=== PATIENT | female | born 1970 | race Caucasian/White ===

== ENCOUNTER 2018-02-26 06:32 | Day surgery (SDC) | payer OTHER ==
[2018-02-26] VITALS (19 sets, daily range): BP systolic 134–168; BP diastolic 74–101; PULSE 74–124; RESP 10–24; Ht 154.9 cm; Wt 87.0 kg
[~2018-02-26] VITALS: Ht 154.9 cm; Wt 87.0 kg
[2018-02-26] MEDS ORDERED: SOD CHLORIDE 0.9% 1,000 ML IV SCH (07:00)
[2018-02-26] MEDS ORDERED: CEFAZOLIN 1 GM/50 ML (PMX) 50 ML IVPB ONE (07:00)
[2018-02-26] MEDS ORDERED: CITA20TA11 PO (07:41)
[2018-02-26] MEDS ORDERED: LORA1TAB PO (07:42)
[2018-02-26] MEDS ORDERED: AMLO5TAB4 PO (07:42)
[2018-02-26] MEDS ORDERED: OMEP20CA16 PO (07:42)
--- NOTE | 2018-02-26 09:52 | HPN ---
Date/Time of Note Date/Time of Note DATE: 02/26/18 TIME: 09:52 Interval H&P Admission Note Pt. seen H&P reviewed: No system changes ROSALINA GONZALEZ MD Feb 26, 2018 09:52
--- NOTE | 2018-02-26 09:53 | PREAC ---
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 not on B-Ze Reported Medications Omeprazole* (Omeprazole*) 20 Mg Capsule.dr, 20 MG PO DAILY, #30 CAP 02/26/18 Lorazepam* (Lorazepam*) 1 Mg Tablet, 1 MG PO BID PRN for ANXIETY, #30 TAB 02/26/18 Amlodipine Besylate* (Norvasc*) 5 Mg Tablet, 5 MG PO DAILY, TAB 02/26/18 Citalopram Hydrobromide* (Celexa*) 20 Mg Tablet, 20 MG PO DAILY, #30 TAB 02/26/18 Current Medications Sodium Chloride 1,000 ml @ 75 mls/hr [id number] IV ; Start 02/26/18 at 07:00; Stop 02/26/18 at 20:19 Meds reviewed: Yes Allergies Coded Allergies: No Known Drug Allergies (Unverified Allergy, Unknown, 02/26/18) Allergies Reviewed: Yes Labs/Studies Labs Reviewed: Reviewed by anesthesiologist Result Diagram: 02/26/18 0730 02/26/18 0730 Laboratory Tests 02/26/18 07:30 test: Negative Pre-procedure Exam Last vitals Vital Signs Date Temp Pulse Resp B/P (MAP) Pulse Ox O2 O2 Flow FiO2 Time Delivery Rate 02/26/18 97.0 74 18 147/88 95 Room Air 08:06 (107) Airway: Adequate mouth opening, Adequate thyromental dist Mallampati: Mallampati II Teeth: Normal Lung: Normal Heart: Normal ASA Physical Status ASA physical status: 2 Emergency: None Planned Anesthetic General/MAC: LMA Planned Pain Management Parenteral pain med Pre-operative Attestations Prior to commencing anesthesia and surgery, the patient was re-evaluated, there was verification of: *The patient's identity *The results of appropriate recent lab work and preoperative vital signs *The above evaluation not changing prior to induction *Anesthetic plan, risk benefits, alternative and complications discussed with patient/family; questions answered; patient/family understands, accepts and wishes to proceed. HOMERO GIBBS MD Feb 26, 2018 09:53
[2018-02-26] MEDS ORDERED: PROPOFOL 20 ML ONE ×2 (10:13→10:40)
[2018-02-26] MEDS ORDERED: FENTAnyl 50 MCG/ML VIAL ONE (10:13)
[2018-02-26] MEDS ORDERED: LIDOCAINE 2% (SDV) 5 ML INJ ONE (10:13)
[2018-02-26] MEDS ORDERED: MIDAZOLAM 1 MG/ML 2 ML INJ ONE (10:13)
[2018-02-26] MEDS ORDERED: FAMOTIDINE 20 MG INJ ONE (10:24)
[2018-02-26] MEDS ORDERED: CEFAZOLIN 1 GM INJ ONE (10:24)
[2018-02-26] MEDS ORDERED: DEXAMETHASONE 4 MG/ML 5 ML INJ ONE (10:24)
[2018-02-26] MEDS ORDERED: ONDANSETRON 4 MG INJ ONE (10:24)
[2018-02-26] MEDS ORDERED: FENTAnyl 50 MCG/ML VIAL IV PRN ×3 (10:30)
[2018-02-26] MEDS ORDERED: PROCHLORPERAZINE 10 MG INJ IV PRN (10:30)
[2018-02-26] MEDS ORDERED: OXYCODONE/ACETAMINOPHEN (5/325) TAB PO PRN ×3 (10:30→11:30)
[2018-02-26] MEDS ORDERED: MEPERIDINE 25 MG INJ IV PRN (10:30)
[2018-02-26] MEDS ORDERED: HYDROmorphONE 1 MG/5 ML IV SYRINGE IV PRN ×3 (10:30)
[2018-02-26] MEDS ORDERED: ONDANSETRON 4 MG INJ IV PRN (10:30)
[2018-02-26] MEDS ORDERED: DIPHENHYDRAMINE 50 MG INJ IV PRN (10:30)
[2018-02-26] MEDS ORDERED: HYDROmorphONE 2 MG/ML SYG ONE (10:44)
[2018-02-26] MEDS ORDERED: EPHEDrine SULFATE 50 MG/5 ML SYG ONE (11:00)
--- NOTE | 2018-02-26 11:38 | SIPON ---
Date/Time of Note Date/Time of Note DATE: 02/26/18 TIME: 11:35 Operative Report Preoperative Diagnosis Large mass left breast biopsy has been benign. Postoperative Diagnosis The same pending pathology report Operation/Procedure Performed Excision of the mass left breast. Surgeon see signature line traffic assistant Non- Anesthesia: general Estimated blood loss: 0 - 10 ml's Transfusion Required none Specimen Yes the mass was excised completely and sent for pathology evaluation. Grafts/Implants none Complications none ROSALINA GONZALEZ MD Feb 26, 2018 11:38
--- NOTE | 2018-02-26 15:01 | PAC ---
Date/Time of Note Date/Time of Note DATE: 02/26/18 TIME: 15:00 Post-Anesthesia Notes Post-Anesthesia Note Last documented vital signs Vital Signs Date Temp Pulse Resp B/P (MAP) Pulse Ox O2 O2 Flow FiO2 Time Delivery Rate 02/26/18 97.8 99 18 139/85 95 Room Air 15:01 Activity: WNL Respiratory function: WNL Cardiovascular function: WNL Mental status: Baseline Pain reasonably controlled: Yes Hydration appropriate: Yes Nausea/Vomiting absent: Yes HOMERO GIBBS MD Feb 26, 2018 15:01
--- NOTE | 2018-02-26 17:13 | OPR ---
DATE OF OPERATION: 02/26/2018 PREOPERATIVE DIAGNOSIS: Large benign mass in the left breast. 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 POSTOPERATIVE DIAGNOSIS: Large benign mass in the left breast. 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 OPERATION PERFORMED: Excisional biopsy (partial mastectomy), left breast. ANESTHESIA: General. ANESTHESIOLOGIST: Jessa Lindquist MD SURGEON: Cosmo Robins MD CONSTRUCTION SUPERINTENDENT: None. ESTIMATED BLOOD LOSS: 2 mL. SPECIMEN: The whole mass was completely excised and sent for pathologic evaluation. INDICATION: This is a 47-year-old female who presented to the office complaining of presence of a mass in the left breast that she has been feeling for almost 2 years, but gradually has been increasing in size. Biopsy outside hospital was performed ( a needle biopsy) which did not show any evidence of cancer, but the patient was recommended to have this excised. Upon examination in the office, it was found that the patient had a mass probably 6 or 7 cm in one direction and 3 or 4 cm in other axis between the left upper outer quadrant and left lower outer quadrant area. We discussed with the patient about the pathology report and recommended the procedure which is complete excision of the mass, but I also discussed the possibility of need for further surgical intervention after the final pathology will be available. Complications of procedures like infection and deformity of the breast area were all discussed with the patient. The patient understood and accepted and signed the consent to proceeding with the procedure. DESCRIPTION OF PROCEDURE: The patient was brought to the operating room, was placed on operating table in supine position. Anesthesia was induced by the anesthesiologist. Left breast was prepped with Betadine in sterile fashion and draped. Time-out was called. The patient was identified, site of operation and procedure were discussed among the team. One Gram Ancef was given IV by the anesthesiologist to the patient. Decision was made to proceed with a radial incision. Radial incision was made over the tumor about 5 to 6 cm long. Then, it was deepened with electrocautery. Then, skin hooks were applied to the edges of the skin and lifted up and gradually dissection continued with cautery toward the lateral and superior aspect of the mass. This continued deep inferiorly, superiorly, medially and laterally. At this time, the silk suture was used for marking the medial, anterior and superior borders of the mass and then using the electrocautery and also VOYANT electrical handheld device for continued of the mass from the surrounding tissue. Eventually, it completely from the rest of the breast and it was excised and was sent for pathologic evaluation. The cavity was thoroughly inspected, irrigated with normal saline solution. Hemostasis was completely achieved. At this time, decision was made to not drain the cavity and close it in 2 layers, deep layer with 4-0 Vicryl interrupted sutures were applied and for subcuticular closure with 5-0 PDS continuous running fashion was performed. At the end, Dermabond dressing was applied over the wound. At the end of that, dry sterile sponges were applied over the incision. The patient tolerated procedure well, was awakened, extubated, transferred to recovery room in stable condition. Dictated By: COSMO SALOMON/LINDA Conf#: [id number] DID#: [id number] MTDD
== END 2018-02-26 14:00 | disposition home or self-care (01) ==
LOC: SDS 06:32
DX: D24.2 Benign neoplasm of left breast (principal); I10 Essential (primary) hypertension; K21.9 Gastro-esophageal reflux disease without esophagitis; F41.9 Anxiety disorder, unspecified
CPT/HCPCS: 19301; 80048; 85025; 85610; 85730; J0690; J1100; J1170; J2250; J2405; J3010; 88307

== ENCOUNTER 2018-04-21 06:24 | Day surgery (SDC) | payer OTHER ==
[2018-04-21] VITALS (19 sets, daily range): BP systolic 108–163; BP diastolic 62–87; PULSE 73–112; RESP 10–25; Ht 154.9 cm; Wt 89.1 kg
[~2018-04-21] VITALS: Ht 154.9 cm; Wt 89.1 kg
[~2018-04-21 06:24] MED LIST: AMLO5TAB4 PO; CITA20TA11 PO; LORA1TAB PO; OMEP20CA16 PO
[2018-04-21] MEDS ORDERED: SOD CHLORIDE 0.9% 1,000 ML IV SCH (07:00)
[2018-04-21] MEDS ORDERED: CEFAZOLIN 1 GM/50 ML (PMX) 50 ML IVPB ONE (07:00)
--- NOTE | 2018-04-21 09:08 | PREAC ---
Date/Time of Note Date/Time of Note DATE: 04/21/18 TIME: 09:06 Anesthesia Eval and Record Evaluation Time Pre-Procedure Interview DATE: 04/21/18 TIME: 09:06 Age 48 Sex female NPO: 8 hrs Preoperative diagnosis Lt breast mass Planned procedure Lt breast partial mastectomy Past Medical History Past Medical History: Includes Cardio: HTN, Dyslipidemia GI: GERD, Morbid obesity Surgery & Anesthesia Issues No known issue Meds Anticoagulation: No Beta Ze within 24 hr: No Reason Beta Ze not given: Pt. not on B-Ze Reported Medications Omeprazole* (Omeprazole*) 20 Mg Capsule.dr, 20 MG PO DAILY, #30 CAP 02/26/18 Lorazepam* (Lorazepam*) 1 Mg Tablet, 1 MG PO BID PRN for ANXIETY, #30 TAB 02/26/18 Amlodipine Besylate* (Norvasc*) 5 Mg Tablet, 5 MG PO DAILY, TAB 02/26/18 Citalopram Hydrobromide* (Celexa*) 20 Mg Tablet, 20 MG PO DAILY, #30 TAB 02/26/18 Current Medications Sodium Chloride 1,000 ml @ 75 mls/hr [id number] IV ; Start 04/21/18 at 07:00; Stop 04/21/18 at 20:19 Meds reviewed: Yes Allergies Coded Allergies: No Known Drug Allergies (Unverified Allergy, Unknown, 04/21/18) Allergies Reviewed: Yes Labs/Studies Labs Reviewed: Reviewed by anesthesiologist Result Diagram: 04/21/18 0700 04/21/18 0700 Laboratory Tests 04/21/18 07:00 test: Negative Studies: ECG Pre-procedure Exam Last vitals Vital Signs Date Temp Pulse Resp B/P (MAP) Pulse Ox O2 O2 Flow FiO2 Time Delivery Rate 04/21/18 96.7 73 16 132/84 98 Room Air 07:28 (100) Airway: Adequate mouth opening, Adequate thyromental dist Mallampati: Mallampati II Teeth: Normal Lung: Normal Heart: Normal ASA Physical Status ASA physical status: 3 Emergency: None Planned Anesthetic General/MAC: LMA Planned Pain Management Parenteral pain med Pre-operative Attestations Prior to commencing anesthesia and surgery, the patient was re-evaluated, there was verification of: *The patient's identity *The results of appropriate recent lab work and preoperative vital signs *The above evaluation not changing prior to induction *Anesthetic plan, risk benefits, alternative and complications discussed with patient/family; questions answered; patient/family understands, accepts and wishes to proceed. ROSEMARIE RICHARD MD Apr 21, 2018 09:08
[2018-04-21] MEDS ORDERED: MIDAZOLAM 1 MG/ML 2 ML INJ ONE (09:20)
[2018-04-21] MEDS ORDERED: ONDANSETRON 4 MG INJ ONE (10:36)
[2018-04-21] MEDS ORDERED: PROPOFOL 20 ML ONE (10:43)
[2018-04-21] MEDS ORDERED: LIDOCAINE 2% (SDV) 5 ML INJ ONE (10:43)
[2018-04-21] MEDS ORDERED: CEFAZOLIN 1 GM INJ ONE (10:44)
[2018-04-21] MEDS ORDERED: MEPERIDINE 25 MG INJ ONE (10:52)
--- NOTE | 2018-04-21 10:56 | PAC ---
Date/Time of Note Date/Time of Note DATE: 04/21/18 TIME: 10:55 Post-Anesthesia Notes Post-Anesthesia Note Last documented vital signs Vital Signs Date Temp Pulse Resp B/P (MAP) Pulse Ox O2 O2 Flow FiO2 Time Delivery Rate 04/21/18 96.7 73 16 132/84 98 Room Air 07:28 (100) Activity: WNL Respiratory function: WNL Cardiovascular function: WNL Mental status: Baseline Pain reasonably controlled: Yes Hydration appropriate: Yes Nausea/Vomiting absent: Yes Comments BP:134/76, P:89, Spo2:100%, T:98,5 ROSEMARIE RICHARD MD Apr 21, 2018 10:56
--- NOTE | 2018-04-21 10:57 | SIPON ---
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 Need for reexcision partial mastectomy to obtain clear margins. Postoperative Diagnosis The same Operation/Procedure Performed Reexcision of the inferior and inferolateral, lateral, superior, and medial margin of the cavity of the previous tumor excision. Surgeon see signature line assurance assistant None Anesthesia: general Estimated blood loss: 0 - 10 ml's Transfusion Required none Specimen Yes reexcised lateral and inferolateral and other bowling of the cavity of the previous tumor excision. The specimen was sent for pathology evaluation after marking sutures as the one long one showed lateral wall to longus inferolateral inferior margin to short superior margin and 1 was actually suture white color anterior margin marked Grafts/Implants none Complications none ROSALINA GONZALEZ MD Apr 21, 2018 10:54
[2018-04-21] MEDS ORDERED: LACTATED RINGER'S 1,000 ML IV SCH (10:58)
[2018-04-21] MEDS ORDERED: HYDROCODONE/APAP (5/325) TAB PO PRN ×2 (11:00)
[2018-04-21] MEDS ORDERED: ONDANSETRON 4 MG INJ IV PRN (11:00)
[2018-04-21] MEDS ORDERED: MEPERIDINE 25 MG INJ IV PRN (11:00)
[2018-04-21] MEDS ORDERED: DIPHENHYDRAMINE 50 MG INJ IV PRN (11:00)
[2018-04-21] MEDS ORDERED: FENTAnyl 50 MCG/ML VIAL IV PRN (11:00)
[2018-04-21] MEDS ORDERED: HYDROmorphONE 1 MG/5 ML IV SYRINGE IV PRN (11:00)
[2018-04-21] MEDS: HYDROmorphONE 1 MG/5 ML IV SYRINGE IV PRN ×2 (11:09→11:28)
--- NOTE | 2018-04-22 19:13 | OPR ---
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 Other margins completely clear. 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 Other margins completely clear. PROCEDURE: LEFT Reexcision partial mastectomy by excising inferolateral and lateral and superior and medial and posterior margins of the cavity, which was left after removing the tumor about a month and a half ago, so this is called reexcision partial mastectomy. SURGEON: Cosmo Robins MD ANESTHESIA: General. ANESTHESIOLOGIST: Dr. Lynch ESTIMATED BLOOD LOSS: 5 mL SPECIMEN: Yes, was marked with silk and Vicryl sutures as follows: Two long silk marking inferior, 1 long and 1 short silk stitch marking lateral, 2 short silk stitch marking superior and 2 long white Vicryl marking anterior margin was sent for pathologic evaluation. INDICATION: This 48-year-old female who was evaluated and seen in the office in February because of presence of a lump in the left breast which patient has been aware of that. In past 2 years and recently has been increasing in size. At that time, discussed with the patient that it is better to be removed completely and the patient agreed and they did a complete excision of the mass with what appeared to us at that time a good margin. The pathology report came back as a low-grade (intermediate) malignancy phyllodes tumor. They mention that all the margins were far away and clean from the tumor, but the dye was extending to the lateral and inferolateral margin. Therefore, the recommendation of the pathologist in our hospital and health and wellness sales consultant pathologists from other state that the specimen had been sent to him for opinion, they recommended reexcision of the margin, so that the chance of recurrence would be decreased much. Therefore, I discussed with the patient the diagnosis and the fact that they report that the margin is very close at the lateral and infralateral borders and the fact that there is a chance of recurrence of this kind of tumor, and if we remove more tissues and more clear margin, the chance of recurrence which is about 25% was decreased much. The patient understood, agreed and wanted the reexcision to be done and of course, I discussed with the patient that because of removing more tissues, there is a chance of deformity of the breast to some extent compared to the other one, chance of infection and as was mentioned of course, the chance of recurrence of this tumor in the future years and the chance of need for further operation. Patient understood and wanted the operation to be done as soon as possible so we booked the patient for today. DESCRIPTION OF THE PROCEDURE: The patient was taken to the operating room, placed on operating table in supine position. Anesthesia was induced by the anesthesiologist. Time-out was called. Patient was identified, side of the operation, site of the operation, and type of operation was discussed among the team. Two gram of Ancef was given by the anesthesiologist. Prep and drape was done in standard sterile fashion. Then, using a 15 size blade, a skin incision was made over the scar of previous operation and carried down through subcutaneous tissue until we entered the cavity. The fluid in the cavity was suctioned out. Hemostasis achieved. Then, circumferential reexcision of the bowling of the cavity, which has been formed at the site of previous tumor resection, was performed. Care was taken to make sure there is a good thickness of the wall on the lateral and inferior part of this cavity and as a whole almost a complete cavity including superior and medial and inferior and posterior and lateral bowling were removed. Hemostasis achieved completely. This specimen was marked with silk sutures. Two long suture inferior wall. One short one long silk suture lateral wall, 2 short silk sutures, superior wall, and 2 long white Vicryl suture anterior wall. No sutures on the medial wall. The specimen was sent for pathologic evaluation. Wound was thoroughly irrigated with normal saline solution. Hemostasis completely achieved. Then, closure started closing the cavity in 2 layers, deep dermal layer with 4-0 Vicryl interrupted sutures and then a second layer 4-0 Monocryl subcuticular continuous running fashion. At the end, Dermabond was applied over the incision line. Dry bulky dressing was applied. Patient tolerated procedure well. Sponge and instrument count reported correct x2. Patient was extubated, transferred to recovery room in stable condition. Dictated By: COSMO SALOMON/LINDA Conf#: [id number] DID#: [id number] [facility] HOSPITALSheryl
== END 2018-04-21 13:39 | disposition home or self-care (01) ==
LOC: SDS 06:24
DX: N60.32 Fibrosclerosis of left breast (principal); L90.5 Scar conditions and fibrosis of skin; I10 Essential (primary) hypertension; E78.5 Hyperlipidemia, unspecified
CPT/HCPCS: 19301; 80048; 82962; 85025; 85610; 85730; 88307; J0690; J1170; J2175; J2250; J2405; J3010